=== PATIENT | male | born 1960 | race Caucasian/White ===

== ENCOUNTER 2016-07-31 19:48 | Emergency (ER) | payer BC, OTHER ==
[2016-07-31 19:56] VITALS: BP 165/88; PULSE 110; TEMP 98.4; BMI 31.8
--- NOTE | 2016-07-31 20:22 | DIRPT ---
CLINICAL DATA: Cough and congestion for 1 week. EXAM: CHEST 2 VIEW COMPARISON: None. FINDINGS: Cardiac silhouette is normal. There is a prominence of the right suprahilar region. There is no evidence of focal airspace consolidation, pleural effusion or pneumothorax. Lung volumes are low. Osseous structures are without acute abnormality. Soft tissues are grossly normal. IMPRESSION: Low lung volumes without evidence of focal consolidation. Prominence of the right suprahilar region which may represent overlapping vascular markings, lymphadenopathy or a mediastinal mass. Repeated PA and lateral radiograph of the chest in full inspiration may be considered, when clinically feasible. Electronically Signed By: Vitaliy Mendieta M.D. On: 07/31/2016 20:19
[2016-07-31] MEDS ORDERED: SODIUM CHLORIDE 0.9% 3 ML FLUSH FLUSH PRN (20:57)
[2016-07-31] MEDS ORDERED: Pharmacy Review for Metformin - IV Contrast Given SCH (21:00)
[2016-07-31] MEDS ORDERED: PREDNISONE 20 MG TAB PO ONE (21:20)
[2016-07-31] MEDS ORDERED: TUSSIONEX 5 ML ORAL SYRINGE PO ONE (21:20)
[2016-07-31] MEDS ORDERED: ALBUTEROL 6.7 GM MDI INH ONE (21:20)
[2016-07-31] MEDS ORDERED: AZITHROMYCIN 250 MG TAB PO ONE (21:20)
--- NOTE | 2016-07-31 21:23 | EDPRACDOC ---
- General Information Chief Complaint: Flu-Like Symptoms Stated Complaint: COUGH Time Seen by Provider: 07/31/16 20:57 Information Source: Patient Mode Of Arrival: Car Home Medications: Home Medications Amlodipine Bes/Olmesartan Med [Galdino 10-20 mg Tablet] 1 tab PO DAILY 08/19/12 Aspirin [Chewable Aspirin] 81 mg PO DAILY 08/19/12 Rosuvastatin Calcium [Crestor] 40 mg PO DAILY 08/19/12 Amoxicillin/Clavulanate Potas. [Augmentin] 875 mg PO BID #20 tab 07/31/16 Benzonatate [Tessalon] 200 mg PO TID #20 capsule 07/31/16 Prednisone [Sterapred Ds] 10 mg PO DIR #21 pack 07/31/16 Allergies/Adverse Reactions: Allergies Allergy/AdvReac Type Severity Reaction Status Date / Time No Known Allergies Allergy Verified 07/31/16 19:55 - History of Present Illness Symptoms Started: TUESDAY HPI: PT STATES HAS BEEN HAVING COUGH CONGESTION RUNNY NOSE AND SINUS DRAINAGE SINCE TUESDAY. STATES HE IS HAVING TROUBLE SLEEPING DUE TO COUGHING. NO BLOODY SPUTUM, SPUTUM IS WHITE TO YELLOW. NO INCREASED SOB OR CHEST PAIN. Symptoms: Reports: Cough, Nasal Symptoms Recent Medications: Reports: None Relevant History Of: Reports: None Shortness of Breath: None Cough Frequency: Continuous Cough Description: Reports: Productive, Congested (WHITE TO YELLOW) Rhinorrhea: Reports: Clear Ear Symptoms: Reports: None Associated Signs and Symptoms: Reports: Cough, Nasal Symptoms, Other (WHITE TO YELLOW SPUTUM) ED Past Medical History - History Reviewed Yes Nurses notes reviewed and agree except as marked Travel Outside of [place] in the Last 3 Months?: No - Patient Medical History Cardiac History: Reports: Hypertension Psychological History: Denies: Depression - Social Medical History Smoking Status: Former smoker ETOH: None Substance Abuse: None Lives With: Other Lives In: Home EDM Review of Systems - Review of Systems ROS Negative Except as Marked: Yes All systems reviewed and were negative except as marked Constitutional: No Symptoms Reported. negative: Fever, Chills, Weakness, Fatigue, Loss of Appetite Eyes: No Symptoms Reported. negative: Redness, Blurred Vision, Double Vision, Discharge, Pain, Light Sensitive, Photophobia Ears: No Symptoms Reported. negative: Pain, Hearing Loss, Drainage, Ear Pulling Throat: No Symptoms Reported. negative: Pain, Swelling Nose: Congestion, Discharge. negative: Abrasion, Bleeding, Deformity, Ecchymosis, Injection, Laceration, Swelling, Tender Mouth: No Symptoms Reported. negative: Pain, Drooling Respiratory: Cough, Sputum (WHITE TO YELLOW). negative: Barky Cough, Brassy Cough, Hemoptysis, Shortness of Breath, Wheezing Cardiovascular: No Symptoms Reported. negative: Chest Pain, Palpitations, Syncope, Edema, Orthopnea, PND, Skin Mottling, Cyanosis Gastrointestinal: No Symptoms Reported. negative: Pain, Constipation, Nausea, Vomiting, Diarrhea, Melena, Formula Intolerance Genitourinary: No Symptoms Reported. negative: Dysuria, Hematuria, Frequency, Discharge, Bleeding, Testicular Pain, Neurological: No Symptoms Reported. negative: Headache, Dizziness, Seizure, Numbness, Weakness, Speech Difficulty, Gait Difficulty Musculoskeletal: No Symptoms Reported. negative: Neck, Chestwall, Ribs, Back, Shoulder, Arm, Elbow, Forearm, Wrist, Hand, Pelvis, Hip, Femur, Knee, Leg, Ankle , Foot Integumentary: No Symptoms Reported. negative: Itching, Rash, Bruising, Wound Allergic/Immunologic: No Symptoms Reported. negative: Hives, Itching Hematologic: No Symptoms Reported. negative: Lymphadenopathy, Easy Bruising, Easy Bleeding Endocrine: No Symptoms Reported. negative: Weight Gain, Weight Loss Psychiatric: No Symptoms Reported. negative: Anxiety, Depression, Hallucinations, Insomnia, Suicidal - Physical Exam Constitutional: No apparent distress, Alert (Awake) Oriented to: Time, Person, Place Last recorded Vital Signs: Last Vital Signs Temp 98.4 F 07/31/16 19:49 Pulse 110 07/31/16 19:49 Resp 22 07/31/16 19:49 BP 165/88 07/31/16 19:49 Pulse Ox 96 07/31/16 19:49 Oxygen Pulse Oxygen Saturation 96 O2 Device Room Air Oxygen Flow Rate Fraction of Inspired Oxygen ( FIO2) - HEENT Head: Normal ( normocephalic) Eye Exam: Normal (PERRL, EOMI, Sclera white) Oropharynx: Normal (Pharynx:Moist without exudate,Gums-no swelling) Tympanic Membrane: Normal ENT EAC: Normal TMJ: Normal Nose: Congestion, Discharge Neck: Normal (FROM, trachea at midline) - Respiratory/Cardiovascular Respiratory: Normal - CTA (BBS clear to auscultation without adventitious sounds ) Cardiovascular: Normal (RRR without murmur, gallop or rub) - GI Auscultation: Normal (NABS) Palpation: Normal (Soft,No rebound or guarding, non distended) Tenderness: Non tender Jeter's Sign: Negative - Bladder: Normal - Musculoskeletal Back: Normal (Non-Tender) Extremities: Normal (Normal tone, Pulses 2+ No cyanosis or edema, FROM) - Integumentary Skin: Normal, Warm, Dry Lymphatics: Normal (no adenopathy) - Neurologic Memory Impaired: Normal Motor Function: Normal (Normal tone, Pulses 2+ No cyanosis or edema, FROM) Cranial Nerve: Normal (CN II-X11 intact sensation, strength 5/5) Cerebellar: Normal Mood Description: Normal Perception: Normal - Differential Diagnosis Bronchitis, Pneumonia, URI, Viral - Diagnostic Imaging CXR Image interpreted by: Radiologist IMPRESSION: Low lung volumes without evidence of focal consolidation. Prominence of the right suprahilar region which may represent overlapping vascular markings, lymphadenopathy or a mediastinal mass. Repeated PA and lateral radiograph of the chest in full inspiration may be considered, when clinically feasible. - Additional Information I HAVE DISCUSSED CHEST XRAY FINDINGS AND THE NEED FOR FOLLOW UP CXR AFTER TREATMENT. Decision Time to Discharge: 21:25 - Departure Disposition: Home Condition: Stable Final Diagnosis: Bronchopneumonia Instructions: Community Acquired Pneumonia (ED), Acute Bronchitis (ED) Education/Counseling Given To: Patient Education/Counseling Given Regarding: Diagnosis, Treatment, Prognosis, Follow Up Referrals: None,No Provider [Primary Care Provider] - One Week Prescriptions: Amoxicillin/Clavulanate Potas. [Augmentin] 875 mg PO BID #20 tab Benzonatate [Tessalon] 200 mg PO TID #20 capsule Prednisone [Sterapred Ds] 10 mg PO DIR #21 pack Additional Instructions: USE ALBUTEROL INHALER Q3-4 HOURS NEEDED FOR SOB AND COUGH. RETURN FOR WORSE OR DIFFERENT SYMPTOMS. FOLLOW UP WITH YOUR PRIMARY MEDICAL DOCTOR FOR REPEAT CHEST XRAY AFTER SYMPTOMS RESOLVE.
[2016-07-31] MEDS ORDERED: AMOXICILLIN/CLAVULANATE 875 MG TAB PO ONE (21:27)
[2016-08-01] MEDS ORDERED: SODIUM CHLORIDE 0.9% 3 ML FLUSH FLUSH SCH (06:00)
== END 2016-07-31 22:08 | disposition home or self-care (01) ==
LOC: ED 19:48 → EDMC 22:08
DX: J18.0 Bronchopneumonia, unspecified organism (principal); I10 Essential (primary) hypertension; Z79.899 Other long term (current) drug therapy
CPT/HCPCS: 71020; 94640; 99283; J3490